=== PATIENT | male | born 1985 | race African-American/Black ===

== ENCOUNTER 2021-10-15 12:37 | Inpatient (IN) | payer OTHER, MEDICAID, SELFPAY ==
[2021-10-15] VITALS (24 sets, daily range): BP systolic 123–149; BP diastolic 75–91; PULSE 70–90; RESP 16–26; TEMP 36.6–38.1; O2SAT 97–100; BMI 23.8
--- NOTE | ~2021-10-15 | CT_ITS ---
EXAMINATION: CT abdomen pelvis w con INDICATION: Abdominal pain and diarrhea TECHNIQUE: Computed tomographic images of the abdomen and pelvis were obtained after the administrati on of 100 cc of Omnipaque 350 intravenous contrast. The dose-length product (DLP) was 309.17 mGy-cm. Automated exposure control and iterative reconstruction technique were employed. COMPARISON: None available FINDINGS: Minimal dependent atelectasis is present in the lung bases. The heart size is normal. The l iver, spleen, pancreas, and adrenal glands are normal. The gallbladder is contracted but normal in ap pearance. Cysts of the right kidney measure up to 8 mm. The left kidney is unremarkable. No pathologi james enlarged abdominal or pelvic lymph nodes are identified. There is no free intraperitoneal gas o r evidence of bowel obstruction. There was liquid stool in the colon to the level of the rectum. The appendix is normal. The left testicle is in the left inguinal canal. IMPRESSION: 1. Liquid stool in the the rectum, consistent with history of diarrhea. Reviewed, dictated and finalized at location F.
--- NOTE | ~2021-10-15 | XR_ITS ---
EXAMINATION: XR chest 1V portable INDICATION: Nausea and vomiting, chills TECHNIQUE: Portable AP chest at 1656 hours COMPARISON: None available FINDINGS: The lungs are free of acute opacities. There is no pleural effusion or pneumothorax. The ca rdiomediastinal silhouette is normal. IMPRESSION: 1. No acute cardiopulmonary abnormality. Reviewed, dictated and finalized at location F. TECHNICIAN
--- NOTE | 2021-10-15 16:48 | ECG_ITS ---
Measurements Intervals [place] Rate: 84 P: 72 [place]: 154 QRS: 76 QRSD: 82 T: 52 QT: 309 QTc: 366 Interpretive Statements SINUS RHYTHM RSR' IN V1 OR V2, PROBABLY NORMAL VARIANT NORMAL ECG Electronically Signed On 10-15-2021 18:24:13 SAP TECHNICAL DEVELOPER by Bruce Locke D.O.
--- NOTE | 2021-10-15 16:50 | ED.GENADULT ---
HPI - General Adult General Chief complaint: Nausea/Vomiting/Diarrhea Stated complaint: Nausea / Vomiting Time Seen by Provider: 10/15/21 15:57 Source: patient Mode of arrival: ambulatory Limitations: no limitations History of Present Illness HPI narrative: Patient presents for evaluation of nausea, vomiting, diarrhea, abdominal pain since 0700 this morning. He was in his normal state of health yesterday and went to bed around 2200 last night feeling well. He woke from sleep this morning with his symptoms. He reports chills and fever. He also has generalized body aches and fatigue. He had an episode of fecal incontinence just prior to the time of my evaluation after he attempted to pass gas rectally. He denies any recent sick contacts. He does not consume ETOH. He has been using heroin daily for the past month but decided to try stop using it two days ago. No other illicit drug use. He does smoke approximately 7 cigarettes/day. He does not provide me with a descriptive quality or numerical rating to the pain but states symptoms are in the bilateral lower quadrants. No personal hx of COVID. He has not received vaccinations for flu or COVID. He does have some mild SOB but denies cough. Related Data Home Medications Medication Instructions Recorded Confirmed No Home Medications 10/15/21 10/15/21 Allergies Allergy/AdvReac Type Severity Reaction Status Date / Time acetaminophen [From Tylenol] AdvReac Abdominal Verified 10/15/21 19:48 Pain Review of Systems Review of Systems: CONSTITUTIONAL: Reports fever and chills EYES: Denies visual changes, redness, or discharge. ENT: Denies rhinorrhea, congestion, sore throat, or otalgia. CARDIOVASCULAR: Denies chest pain, palpitations, or edema. RESPIRATORY: Reports SOB. Denies cough GASTROINTESTINAL: Reports abdominal pain, nausea, vomiting, diarrhea GENITOURINARY: Denies dysuria or hematuria. SKIN: Denies rash or itching. MUSCULOSKELETAL: Reports generalized body aches NEUROLOGIC: Reports generalized weakness. Denies headache, numbness, or dizziness. PSYCHIATRIC: Denies anxiety or depression. [facility] Past Medical History Medical History (Updated 10/15/21 @ 21:54 by Aric Lewis, JL, ) Carpal tunnel syndrome Surgical History Surgical History History of carpal tunnel repair Family History Family History Mother No pertinent past medical history Social History Social History (Updated 10/15/21 @ 16:58 by Aric Lewis, [facility], ) Smoking status: Current every day smoker Substance use: current Substance use type: heroin Additional living arrangements comments: Lives with fiance Gender identity (if verbalized by the patient): Male Sexual Orientation (if Verbalized by the Patient): Straight or Heterosexual Spiritual care concerns: No Exam Narrative: GENERAL: Visibly uncomfortable. Appears acutely ill but in no apparent distress HEAD: Normocephalic, atraumatic. EYES: PERRLA and EOMI. ENT: Nares clear, no rhinorrhea or epistaxis. Mucous membranes moist. Oropharynx without tonsillar hypertrophy exudate or other lesions. Bilateral TMs pearly franco nonbulging NECK: Supple. No adenopathy or masses. No carotid bruits or JVD CHEST: Clear to auscultation. No respiratory distress. No wheezes rales or rhonchi HEART: Regular rate and rhythm. No murmur heard. Normal peripheral pulses. ABDOMEN: Soft, mild diffuse abdominal tenderness without rebound or guarding. Abdomen is nondistended, normal active bowel sounds. EXTREMITIES: Normal range of motion. No edema. SKIN: Warm, dry, no rash. NEURO: No focal deficits. Alert and oriented x3. PSYCH: Normal mood and affect. Course Course Emergency Course: This is a 36-year-old male who presented with complaints of chills, nausea, vomiting, diarrhea. Initial consideration was for acut
[2021-10-15] MEDS: SODIUM CHLORIDE 0.9% IV 1,000 ML 999 ML IV CONT ×2 (17:16→19:36)
[2021-10-15] MEDS: ONDANSETRON INJ 4 MG/2 ML VIAL IV PUSH (17:17)
[2021-10-15 17:22] LABS: Basophils Percent Auto 0.2 % (0.2-1.2); Hematocrit 44.1 % (42.0-52.0); Hemoglobin 15.2 g/dL (14.0-18.0); Immature Granulocyte Absolute 0.03 K/mm3 (0.00-0.031); Immature Granulocyte Percent A 0.3 % (0-0.5); Lymphocytes Absolute Auto 1.06 K/mm3 (0.9-3.2); Lymphocytes Percent Auto 11.6 % (18.3-44.2); Mean Corpuscular HGB Conc 34.5 g/dl (32-36); Mean Corpuscular Hemoglobin 29.4 pg (26-34); Mean Corpuscular Volume 85.3 fl (80-100); Mean Platelet Volume 9.1 fl (7.4-10.4); Monocytes Absolute Auto 0.3 K/mm3 (0.1-0.6); Monocytes Percent Auto 2.8 % (2.6-8.5); Neutrophils Absolute Auto 7.8 K/mm3 (1.3-6.7); Neutrophils Percent Auto 85.1 % (45.5-73.1); Platelet Count Result 316 k/mm3 (150-375); Red Blood Count 5.17 M/mm3 (4.6-6.20); Red Cell Distribution Width 12.6 % (11.5-14.5); White Blood Count 9.2 K/mm3 (4.5-10.0)
[2021-10-15 17:32] LABS: Alanine Aminotransferase 41 U/L (4-50); Alkaline Phosphatase 76 U/L (38-126); Anion Gap 12 mmol/L (8-16); Aspartate Amino Transferase 33 U/L (17-59); Bilirubin,Total 0.5 mg/dL (0.2-1.3); Blood Urea Nitrogen 10 mg/dL (9-20); Calcium 10.3 mg/dL (8.4-10.2); Carbon Dioxide 25 mmol/L (22-30); Chloride 101 mmol/L (98-107); Estimated CRCL calculation 151 ml/min; Estimated Glomerular Filt Rate > 60; Glucose 124 mg/dL (65-110); Lipase 46 U/L (23-300); Potassium 3.7 mmol/L (3.4-5.0); Sodium 138 mmol/L (137-145)
[2021-10-15 17:44] LABS: Troponin I < 0.012 ng/mL (0.000-0.034)
[2021-10-15] MEDS: KETOROLAC 30 MG/ML VIAL (*BKC) IV PUSH (18:49)
[2021-10-15 19:10] LABS: Add Urine Microscopic? YES; Appearance Urine Clear (Clear); Bilirubin Urine Negative (Negative); Color Urine Yellow (Yellow); Glucose Urine UA Negative (Negative); Ketones Urine 1+ mg/dL (Negative); Leukocyte Esterase Ur Trace LEU/UL (Negative); Mucus Urine Heavy /lpf; Nitrate Urine Negative (Negative); Protein Urine 2+ mg/dL (Negative)
[2021-10-15 19:11] LABS: Blood Urine Negative (Negative); Specific Grav Ur 1.049 (1.001-1.035)
[2021-10-15 19:15] LABS: Amphetamine Screen Urine Negative (Negative); Barbiturate Screen Urine Negative (Negative); Benzodiazepines Screen Urine Negative (Negative); Cannabinoid Screen Urine Positive (Negative); Cocaine Screen Urine Negative (Negative); Methadone Screen Urine Negative (Negative); Opiate Screen Urine Positive (Negative); Phencyclidine Screen Urine Negative (Negative)
[2021-10-15] MEDS: PROMETHAZINE HCL 25 MG/ML AMPUL 12.5 MG IV PUSH (19:37)
[2021-10-15] MEDS: SODIUM CHLORIDE 0.9% IV 100 ML 500 ML (19:37)
[2021-10-15] MEDS: cloNIDine HCL 0.1 MG TABLET PO (19:37)
--- NOTE | 2021-10-15 21:42 | PM.IMHP ---
H&P: HPI History of Present Illness Date/Time: 10/15/21 21:42 Chief Complaint: Nausea /vomiting/ diarrhea Narrative: This is a 36-year-old male with past medical history significant for heroin abuse, tobacco dependence. Patient presented to emergency room due to nausea, vomiting, abdominal pain and diarrhea for the last 2 days or so after the patient had been consuming heroin for the past 2 weeks on a daily basis. Patient also has muscular pain. Most of the history has been obtained upon reviewing medical records at the time of my visit patient was obtunded he had received Phenergan. In the emergency room patient had a fever of 100.5. Patient denied the use of IV drugs and denied use of other concomitant substance. Preliminary workup was significant for CT of abdomen and pelvis and chest x-ray with no acute abnormalities, a UA was significant for WBCs present, basic metabolic profile was irrelevant. Patient has been placed in observation for further evaluation management and treatment. Review of Systems Review of Systems: Nausea, vomiting, diarrhea ,abdominal pain. Constitutional: Constitutional: Reports fatigue, Reports fever(s), Reports lethargy, Denies night sweats and Reports poor appetite Eyes: Eyes: Denies change in vision ENT: Denies dysphagia, Denies nasal congestion, Denies nasal discharge, Denies nasal obstruction and Denies odynophagia Cardiovascular: Cardiovascular: Denies lightheadedness, Denies radiating jaw, neck or arm pain, Denies palpitations, Denies dyspnea on exertion and Denies orthopnea Respiratory: Respiratory: Denies change in phlegm color, Denies cough, Denies excessive phlegm production and Denies dyspnea Gastrointestinal: Gastrointestinal: Reports abdominal pain, Denies melena, Denies hematochezia, Denies change in stool character, Denies coffee ground emesis, Denies dyspepsia, Denies heartburn, Reports diarrhea, Reports nausea and Reports vomiting Genitourinary: Genitourinary: Denies dysuria and Denies flank pain Musculoskeletal: Musculoskeletal: Denies back pain and Reports myalgias Integumentary/Breasts: Skin/Breast: Denies rash Neurologic: Denies focal weakness and Denies Sensory deficit (Neuro) Psychiatric: Psychiatric: Reports other (Substance abuse) Endocrine: Endocrine: Denies cold intolerance, Denies heat intolerance, Denies polyphagia, Denies polydipsia, Denies polyuria and Denies palpitations Hematologic/Lymphatic: Hematologic/Lymphatic: Reports no additional hematologic/lymphatic complaints and Reports as per HPI Allergic/Immunologic: Allergic/Immunologic: Reports no additional allergic/immunologic complaints and Reports as per HPI PMFSH Past Medical History Medical History (Updated 10/16/21 @ 03:29 by Olimpia Loja MD) Carpal tunnel syndrome Surgical History Surgical History History of carpal tunnel repair Family History Family History Mother No pertinent past medical history Social History Social History (Updated 10/15/21 @ 16:58 by JL Lawler, ) Smoking status: Current every day smoker Alcohol intake: never Substance use: former Substance use type: heroin Last use: 2 days ago Additional living arrangements comments: Lives with fiance Gender identity (if verbalized by the patient): Male Sexual Orientation (if Verbalized by the Patient): Straight or Heterosexual Spiritual care concerns: No Meds Home Medications and Allergies Home Medications Medication Instructions Recorded Confirmed Type No Home Medications 10/15/21 10/15/21 History Allergies Allergy/AdvReac Type Severity Reaction Status Date / Time acetaminophen [From Tylenol] AdvReac Abdominal Verified 10/16/21 00:01 Pain Vital Signs Vital Signs - 24 hr 10/15/21 13:39 10/15/21 15:44 10/15/21 18:50 Temperature 98 F Pulse R
[2021-10-15 21:48] LABS: SARS-CoV-2 RNA PCR Negative
[2021-10-15] MEDS: DICYCLOMINE HCL INJ 20 MG/2 ML VIAL IM (22:59)
[2021-10-15] MEDS: SODIUM CHLORIDE 0.9% IV 1,000 ML 150 ML IV CONT (23:00)
--- NOTE | 2021-10-15 23:45 | ADMGEN ---
This patient, Michele Mendez, was admitted to Medical Room 241-. Patient/family oriented to hospital policies and general routines including ID bracelet, bed and alarms, visiting hours, pain management, procedures, bathroom and other care routines, personal items, smoking policy, room service/diet, and visiting hours. Information on how to activate the Rapid Response Team has been discussed. Patient/Family are encouraged to report perceived risks to care and to ask questions if they do not understand what they are told or what they should do.
[2021-10-16] VITALS (10 sets, daily range): BP systolic 105–125; BP diastolic 61–84; PULSE 67–97; RESP 14–18; TEMP 36.9–37.1; O2SAT 99–100
[2021-10-16] MEDS: SODIUM CHLORIDE 0.9% IV 1,000 ML 125 ML IV CONT ×3 (01:15→20:31)
[2021-10-16 01:31] LABS: Troponin I < 0.012 ng/mL (0.000-0.034)
[2021-10-16] MEDS: CIPROFLOXACIN 400 MG/D5W 200ML 200 ML 200 MG IVPB ×3 (03:49→20:33)
[2021-10-16 05:19] LABS: Basophils Percent Auto 0.4 % (0.2-1.2); Hematocrit 38.3 % (42.0-52.0); Hemoglobin 12.9 g/dL (14.0-18.0); Immature Granulocyte Absolute 0.04 K/mm3 (0.00-0.031); Immature Granulocyte Percent A 0.4 % (0-0.5); Lymphocytes Absolute Auto 1.73 K/mm3 (0.9-3.2); Lymphocytes Percent Auto 16.7 % (18.3-44.2); Mean Corpuscular HGB Conc 33.7 g/dl (32-36); Mean Corpuscular Hemoglobin 29.9 pg (26-34); Mean Corpuscular Volume 88.7 fl (80-100); Mean Platelet Volume 9.4 fl (7.4-10.4); Monocytes Percent Auto 9.4 % (2.6-8.5); Neutrophils Absolute Auto 7.6 K/mm3 (1.3-6.7); Neutrophils Percent Auto 73.1 % (45.5-73.1); Platelet Count Result 270 k/mm3 (150-375); Red Blood Count 4.32 M/mm3 (4.6-6.20); Red Cell Distribution Width 12.9 % (11.5-14.5); White Blood Count 10.4 K/mm3 (4.5-10.0)
[2021-10-16 05:45] LABS: Alanine Aminotransferase 27 U/L (4-50); Albumin Level 3.5 g/dL (3.5-5.1); Alkaline Phosphatase 47 U/L (38-126); Anion Gap 10 mmol/L (8-16); Aspartate Amino Transferase 26 U/L (17-59); Bilirubin,Total 0.5 mg/dL (0.2-1.3); Blood Urea Nitrogen 13 mg/dL (9-20); Calcium 8.5 mg/dL (8.4-10.2); Carbon Dioxide 18 mmol/L (22-30); Chloride 107 mmol/L (98-107); Estimated CRCL calculation 151 ml/min; Estimated Glomerular Filt Rate > 60; Glucose 125 mg/dL (65-110); Potassium 3.6 mmol/L (3.4-5.0); Sodium 135 mmol/L (137-145)
[2021-10-16] MEDS: FAMOTIDINE 20 MG/2 ML VIAL IV PUSH ×2 (08:17→20:34)
--- NOTE | 2021-10-16 08:44 | PM.DS ---
DS: Admitting Diagnosis Discharge Date 10/16/2021 Admitting Diagnosis n/v/d DS: Discharge Diagnosis Discharge Diagnosis (1) Intractable nausea and vomiting: Code(s): R11.2 - Nausea with vomiting, unspecified Status: Acute Assessment and Plan: Place in observation Advance diet to a regular bland CT abdomen and pelvis no abnormalities Will discharge with Zofran or Compazine Opioid withdrawal protocol implemented (2) Abdominal pain: Code(s): R10.9 - Unspecified abdominal pain Status: Acute Assessment and Plan: Likely secondary to heroin withdrawal Supportive care (3) Substance abuse: Code(s): F19.10 - Other psychoactive substance abuse, uncomplicated Status: Acute Assessment and Plan: Follow-up in outpatient setting (4) Altered mental status: Code(s): R41.82 - Altered mental status, unspecified Status: Acute Assessment and Plan: Likely secondary to febrile illness Patient had a fever of 100.5 in emergency room (5) Urinary tract infection: Code(s): N39.0 - Urinary tract infection, site not specified Status: Acute Assessment and Plan: Patient started on ciprofloxacin will continue at discharge (6) Fever: Code(s): R50.9 - Fever, unspecified Status: Acute Assessment and Plan: Chest x-ray clear COVID-19 screen test negative Possibly secondary to UTI DS: Summary Hospital Course Hospital Course: This is a progress note CIWA greater than 15 patient currently experience withdrawal symptoms, patient stated he his abdominal pain and cramping, diarrhea, nausea ,shakes, muscle aches. This is a 36-year-old male with past medical history significant for heroin abuse, tobacco dependence. Patient presented to emergency room due to nausea, vomiting, abdominal pain and diarrhea for the last 2 days or so after the patient had been consuming heroin for the past 2 weeks on a daily basis. Patient denied the use of IV drugs and denied use of other concomitant substance. Preliminary workup was significant for CT of abdomen and pelvis and chest x-ray with no acute abnormalities, a UA was significant for WBCs present, basic metabolic profile was irrelevant. Patient was placed in observation for further evaluation management and treatment.per h&p notes. Patient will be discharged today with medication to treat his withdrawal symptoms. Obvious distress noted. Patient denies cp, sob, palpitation, diarrhea, constipation, lightheadness, headache, dizziness or chills and fevers. Time Spent with Patient Time attestation: Total time spent providing and/or coordinating discharge services: Exam Narrative: GENERAL: This is a well-nourished, well-developed patient, in no apparent distress. HEAD: normocephalic, atraumatic. EYES: PERRL. Sclera clear/white. Vision is grossly intact. EARS: External ears normal, auditory canals clear and without drainage, TMs normal without perforation. Hearing grossly intact. NOSE: External nose normal with no obvious nasal discharge, nares without redness, no rhinorrhea. THROAT: Mucous membranes moist, posterior pharynx clear. NECK: Neck supple, non-tender without lymphadenopathy, masses or thyromegaly. CARDIOVASCULAR: Regular rate and rhythm without murmurs, gallops, or rubs. RESPIRATORY: Clear to auscultation. Breath sounds equal bilaterally. No wheezes, rales, or rhonchi. GASTROINTESTINAL: Abdomen soft, non-tender, nondistended. Bowel sounds are active. No hepato-splenomegaly, or palpable masses. No guarding. SKIN: warm, intact with no suspicious lesions or rash, good texture and turgor. NEURO: awake, alert, and oriented to person, place and time. There were no obvious focal neurologic abnormalities. Steady gait EXTREMITIES: Normal range of motion. No edema. No calf tenderness. Negative Homans sign bilaterally. BACK: Nontender without deformity or crepitance. No flank tenderness. DS: Data Data Completed an
[2021-10-16] MEDS: ONDANSETRON INJ 4 MG/2 ML VIAL IV PUSH (09:35)
[2021-10-16] MEDS: LORazepam INJ (*CRX) 2 MG/ML VIAL 0.5 MG IV PUSH (09:35)
[2021-10-16] MEDS: chlordiazePOXIDE (*CRX) 25 MG CAPSULE PO ×3 (12:24→23:58)
[2021-10-16] MEDS: LORazepam INJ (*CRX) 2 MG/ML VIAL IV PUSH (13:36)
[2021-10-16] MEDS: PANTOPRAZOLE SODIUM IV 40 MG VIAL IV PUSH (15:36)
[2021-10-16] MEDS: LOPERAMIDE HCL 2 MG CAPSULE PO (17:49)
[2021-10-16] MEDS: IBUPROFEN 400 MG TABLET PO ×2 (17:49→23:58)
[2021-10-16] MEDS: QUEtiapine FUMARATE 25 MG TABLET 50 MG PO (20:35)
[2021-10-16] MEDS: LORazepam INJ (*CRX) 2 MG/ML VIAL 1 MG IV PUSH (20:36)
[2021-10-16] MEDS: CYCLOBENZAPRINE HCL 10 MG TABLET PO (23:58)
[2021-10-17] VITALS (12 sets, daily range): BP systolic 120–138; BP diastolic 71–81; PULSE 59–105; RESP 16–20; TEMP 37–37.8; O2SAT 99–100; BMI 23.8
[2021-10-17] MEDS: LORazepam INJ (*CRX) 2 MG/ML VIAL 1 MG IV PUSH (03:21)
[2021-10-17] MEDS: CIPROFLOXACIN 400 MG/D5W 200ML 200 ML 200 MG IVPB ×3 (03:46→20:10)
[2021-10-17] MEDS: chlordiazePOXIDE (*CRX) 25 MG CAPSULE PO ×3 (05:19→18:00)
[2021-10-17 06:04] LABS: Hematocrit 36.4 % (42.0-52.0); Hemoglobin 12.6 g/dL (14.0-18.0); Mean Corpuscular HGB Conc 34.6 g/dl (32-36); Mean Corpuscular Hemoglobin 29.2 pg (26-34); Mean Corpuscular Volume 84.3 fl (80-100); Mean Platelet Volume 9.1 fl (7.4-10.4); Platelet Count Result 290 k/mm3 (150-375); Red Blood Count 4.32 M/mm3 (4.6-6.20); Red Cell Distribution Width 12.3 % (11.5-14.5); White Blood Count 8.2 K/mm3 (4.5-10.0)
[2021-10-17 06:23] LABS: Anion Gap 4 mmol/L (8-16); Blood Urea Nitrogen 6 mg/dL (9-20); Calcium 8.9 mg/dL (8.4-10.2); Carbon Dioxide 25 mmol/L (22-30); Chloride 106 mmol/L (98-107); Estimated CRCL calculation 151 ml/min; Estimated Glomerular Filt Rate > 60; Glucose 107 mg/dL (65-110); Potassium 3.2 mmol/L (3.4-5.0); Sodium 135 mmol/L (137-145)
[2021-10-17] MEDS: FAMOTIDINE 20 MG/2 ML VIAL IV PUSH ×2 (08:39→20:10)
[2021-10-17] MEDS: SODIUM CHLORIDE 0.9% IV 1,000 ML 125 ML IV CONT (08:39)
[2021-10-17] MEDS: CYCLOBENZAPRINE HCL 10 MG TABLET PO (09:36)
[2021-10-17] MEDS: LOPERAMIDE HCL 2 MG CAPSULE PO (09:36)
--- NOTE | 2021-10-17 15:09 | PM.IMPN ---
Progress Note: A&P Assessment and Plan (1) Intractable nausea and vomiting: Code(s): R11.2 - Nausea with vomiting, unspecified Status: Acute Assessment and Plan: Place in observation On clear, ADAT CT abdomen and pelvis no acute abnormalities Continue antiemetics Opioid withdrawal protocol implemented (2) Abdominal pain: Code(s): R10.9 - Unspecified abdominal pain Status: Acute Assessment and Plan: Likely secondary to heroin withdrawal Supportive care (3) Substance abuse: Code(s): F19.10 - Other psychoactive substance abuse, uncomplicated Status: Acute Assessment and Plan: Follow-up in outpatient setting (4) Altered mental status: Code(s): R41.82 - Altered mental status, unspecified Status: Acute Assessment and Plan: Likely secondary UTI Patient had a fever of 100.5 in emergency room (5) Urinary tract infection: Code(s): N39.0 - Urinary tract infection, site not specified Status: Acute Assessment and Plan: Continue ciprofloxacin UC negative (6) Fever: Code(s): R50.9 - Fever, unspecified Status: Acute Assessment and Plan: Chest x-ray clear COVID-19 screen test negative Possibly secondary to UTI Additional Plan Code status: FULL DVT Ppx: pt up ad ruthie Subjective Date/time seen: 10/17/21 15:09 Interval history: Pt seen and evaluated; labs, vs, diagnostic results reviewed; afebrile today; pt endorses N/V/D; reports low back pain Review of Systems Review of Systems: All systems reviewed & are unremarkable except as noted in HPI and below Exam Const: General: ill appearing Orientation/consciousness: patient oriented x3 HENMT: Head: normocephalic and atraumatic Ears: hearing grossly normal bilaterally and external ears normal Face and sinus: face symmetric Mouth: Yes Normal oral and palatal mucosa present Eyes: EOM: EOMs intact bilaterally Neck: Neck: full ROM, trachea midline and no JVD Resp: Effort & Inspection: normal respiratory effort Auscultation: clear to auscultation bilaterally Cardio: Jugular venous distension: no JVD Rate: regular rate Rhythm: regular rhythm Heart sounds: S1 normal heart sound present and S2 normal heart sound present GI: Inspection: normal to inspection GI Palp: Yes Soft to palpation Percussion: Yes normal to percussion Auscultation: normal bowel sounds : General: Yes no CVA tenderness Skin: General skin exam: normal color Rashes: no rashes Neuro: General: patient oriented x3 and no focal motor deficits Cranial nerves: Yes Equal, round and reactive pupils present Speech: normal speech Extrem: General: no clubbing, cyanosis or edema Psych: Appearance: grossly normal Affect: Sad affect present Judgement: Good judgement present (Psych) Objective Data Vital Signs Vital Signs: Vital Signs - 24 hr 10/16/21 16:00 10/16/21 19:23 10/16/21 20:00 Temperature 37.1 C 37.1 C Pulse Rate 80 84 97 Respiratory Rate 16 18 Blood Pressure 120/84 118/65 Pulse Oximetry 100 99 10/16/21 23:48 10/17/21 00:00 10/17/21 03:08 Temperature 37.1 C 37.7 C H Pulse Rate 67 78 64 Respiratory Rate 14 16 Blood Pressure 116/78 120/72 Pulse Oximetry 100 99 10/17/21 04:00 10/17/21 08:00 10/17/21 10:07 Temperature 37.3 C Pulse Rate 72 105 H 72 Respiratory Rate 20 Blood Pressure 122/71 Pulse Oximetry 100 10/17/21 12:00 Temperature Pulse Rate 74 Respiratory Rate Blood Pressure Pulse Oximetry Intake/Output Intake/Output: Intake & Output 10/14/21 10/15/21 10/16/21 10/17/21 23:59 23:59 23:59 23:59 Intake Total 2200 3600 1970 Balance 2200 3600 1970 Meds/Results Medications: Active Medications Generic Name Dose Route Start Last Admin Trade Name Freq PRN Reason Stop Dose Admin Chlordiazepoxide HCl 25 mg 10/16/21 11:20 10/17/21 11:51 Chlordiazepoxide (*Crx) 25 Mg Capsule PO 25 mg Q6HR COUNTS INCLUDE 234 BEDS AT THE [facility] Administr
[2021-10-17] MEDS: IBUPROFEN 600 MG TABLET PO (16:19)
[2021-10-17] MEDS: POTASSIUM CHLORIDE 20 MEQ PACKET (FOR LIQUID) 40 MEQ PO (16:19)
[2021-10-17] MEDS: SODIUM CHLORIDE 0.9% IV 1,000 ML 75 ML IV CONT (20:10)
[2021-10-17] MEDS: QUEtiapine FUMARATE 25 MG TABLET 50 MG PO (20:11)
[2021-10-18] VITALS (10 sets, daily range): BP systolic 112–145; BP diastolic 68–93; PULSE 54–110; RESP 14–20; TEMP 36.4–37.5; O2SAT 100
[2021-10-18] MEDS: chlordiazePOXIDE (*CRX) 25 MG CAPSULE PO ×4 (00:03→20:12)
[2021-10-18] MEDS: CYCLOBENZAPRINE HCL 10 MG TABLET PO (00:08)
[2021-10-18] MEDS: CIPROFLOXACIN 400 MG/D5W 200ML 200 ML 200 MG IVPB (03:46)
[2021-10-18] MEDS: IBUPROFEN 600 MG TABLET PO ×2 (03:46→17:24)
[2021-10-18] MEDS: hydrOXYzine HCL 25 MG TABLET 50 MG PO (03:47)
[2021-10-18 06:04] LABS: Anion Gap 9 mmol/L (8-16); Blood Urea Nitrogen 3 mg/dL (9-20); Calcium 8.9 mg/dL (8.4-10.2); Carbon Dioxide 23 mmol/L (22-30); Chloride 103 mmol/L (98-107); Estimated CRCL calculation 131 ml/min; Estimated Glomerular Filt Rate > 60; Glucose 122 mg/dL (65-110); Potassium 3.2 mmol/L (3.4-5.0); Sodium 135 mmol/L (137-145)
[2021-10-18] MEDS: POTASSIUM CHLORIDE 20 MEQ PACKET (FOR LIQUID) PO (08:33)
[2021-10-18] MEDS: FAMOTIDINE 20 MG/2 ML VIAL IV PUSH ×2 (08:33→20:10)
--- NOTE | 2021-10-18 10:13 | P.PNIM_ITS ---
Progress Note: A&P Assessment and Plan (1) Nausea vomiting and diarrhea: Code(s): R11.2 - Nausea with vomiting, unspecified; R19.7 - Diarrhea, unspecified Status: Acute Assessment and Plan: Improving. [place] to be secondary to opioid withdrawal * CT abdomen/pelvis showed liquid stool but no acute findings to explain symptoms * Advanced to regular diet * Will discontinue IV fluids as patient is tolerating oral intake and vomiting has resolved * Antiemetics available as needed * Diarrhea improving. One episode of loose stool today (2) Abdominal pain: Code(s): R10.9 - Unspecified abdominal pain Status: Acute Assessment and Plan: Improved. As above, felt to be secondary to opioid withdrawal * Supportive care * Plan as above (3) Fever: Code(s): R50.9 - Fever, unspecified Status: Acute Assessment and Plan: Low-grade fever with T-max 100.5?. * Febrile last night at 100.0 * CXR without concerns for infection. COVID screening was negative * Initially felt to be secondary to UTI and he was started on ciprofloxacin, however urine culture shows <10k single Gram-positive organism. This is not consistent with infection. Ciprofloxacin discontinued * Will obtain blood cultures * Hold on stool cultures at this time as stool is becoming more formed and diarrhea more likely explained by opioid withdrawal. * Check HIV, hepatitis, RPR, gonorrhea, chlamydia testing * Acetaminophen as needed for fever * Continue to monitor closely (4) Substance abuse: Code(s): F19.10 - Other psychoactive substance abuse, uncomplicated Status: Acute Assessment and Plan: Patient has been smoking heroin daily for 1 month * Care coordination consult to provide resources for cessation * He denies IV drug use * Supportive care * He was started on scheduled librium 25 mg PO q6h. Will begin to taper this. * He will need close outpatient follow-up with PCP (5) Low back pain: Code(s): M54.50 - Low back pain, unspecified Status: Acute Assessment and Plan: Chronic * Supportive care * Ice and heat as needed * Lidocaine patch (6) Hypokalemia: Code(s): E87.6 - Hypokalemia Status: Acute Assessment and Plan: Secondary to diarrhea. * Potassium 3.2 today * Administer PO KCl 20 meq * Monitor BMP Subjective Date/time seen: 01/11/22 10:13 Interval history: Date of service: 10/18/2021 Michele Nance is a 36-year-old male with a history of heroin abuse who is seen in follow-up for fevers, nausea, and vomiting. He feels generally unwell and notes very minimal improvement since his admission. He still has nausea, though he has had not had any more episodes of emesis. He has only had liquids and has not attempted to try solid food yet, though there is solids on his breakfast tray and he says he is going to try to have some. This morning he had an episode of diarrhea. He states it was loose in consistency but not watery. He endorses chills and generalized weakness. He complains of diffuse low back pain that has been persistent for 3 days. He later states that he has had back pain that has been constant since 2014 when he had back surgery and feels his pain is consistent with this. He would like to take some pain medication for this. He denies radiation to the hips, buttocks, or legs. He denies dysuria or hematuria. He reports he was smoking heroin daily. He denies ever using IV drugs. He denies any open wounds. He denies tremors, hallucinations, agitation
--- NOTE | 2021-10-18 10:13 | PM.IMPN ---
Progress Note: A&P Assessment and Plan (1) Nausea vomiting and diarrhea: Code(s): R11.2 - Nausea with vomiting, unspecified; R19.7 - Diarrhea, unspecified Status: Acute Assessment and Plan: Improving. [place] to be secondary to opioid withdrawal CT abdomen/pelvis showed liquid stool but no acute findings to explain symptoms Advanced to regular diet Will discontinue IV fluids as patient is tolerating oral intake and vomiting has resolved Antiemetics available as needed Diarrhea improving. One episode of loose stool today (2) Abdominal pain: Code(s): R10.9 - Unspecified abdominal pain Status: Acute Assessment and Plan: Improved. As above, felt to be secondary to opioid withdrawal Supportive care Plan as above (3) Fever: Code(s): R50.9 - Fever, unspecified Status: Acute Assessment and Plan: Low-grade fever with T-max 100.5?. Febrile last night at 100.0 CXR without concerns for infection. COVID screening was negative Initially felt to be secondary to UTI and he was started on ciprofloxacin, however urine culture shows <10k single Gram-positive organism. This is not consistent with infection. Ciprofloxacin discontinued Will obtain blood cultures Hold on stool cultures at this time as stool is becoming more formed and diarrhea more likely explained by opioid withdrawal. Check HIV, hepatitis, RPR, gonorrhea, chlamydia testing Acetaminophen as needed for fever Continue to monitor closely (4) Substance abuse: Code(s): F19.10 - Other psychoactive substance abuse, uncomplicated Status: Acute Assessment and Plan: Patient has been smoking heroin daily for 1 month Care coordination consult to provide resources for cessation He denies IV drug use Supportive care He was started on scheduled librium 25 mg PO q6h. Will begin to taper this. He will need close outpatient follow-up with PCP (5) Low back pain: Code(s): M54.50 - Low back pain, unspecified Status: Acute Assessment and Plan: Chronic Supportive care Ice and heat as needed Lidocaine patch (6) Hypokalemia: Code(s): E87.6 - Hypokalemia Status: Acute Assessment and Plan: Secondary to diarrhea. Potassium 3.2 today Administer PO KCl 20 meq Monitor BMP Subjective Date/time seen: 10/18/21 10:13 Interval history: Date of service: 10/18/2021 Michele Nance is a 36-year-old male with a history of heroin abuse who is seen in follow-up for fevers, nausea, and vomiting. He feels generally unwell and notes very minimal improvement since his admission. He still has nausea, though he has had not had any more episodes of emesis. He has only had liquids and has not attempted to try solid food yet, though there is solids on his breakfast tray and he says he is going to try to have some. This morning he had an episode of diarrhea. He states it was loose in consistency but not watery. He endorses chills and generalized weakness. He complains of diffuse low back pain that has been persistent for 3 days. He later states that he has had back pain that has been constant since 2014 when he had back surgery and feels his pain is consistent with this. He would like to take some pain medication for this. He denies radiation to the hips, buttocks, or legs. He denies dysuria or hematuria. He reports he was smoking heroin daily. He denies ever using IV drugs. He denies any open wounds. He denies tremors, hallucinations, agitation, restlessness. Review of Systems Review of Systems: All systems reviewed & are unremarkable except as noted in HPI and below Exam Narrative: Mr. Mendez is a thin, well-appearing 36-year-old male who is sitting up in a chair. He appears comfortable and is in NARD. Neuro: awake, alert and oriented x4, speech clear, no focal neuro deficits noted HEENMT: normocephalic, atraumatic, EOMI, sclerae anic
[2021-10-18 12:20] LABS: HIV 1/2 Ab P24 Ag Result Negative (Negative)
[2021-10-18 12:53] LABS: Hepatitis B Surface Antigen Negative (Negative)
[2021-10-18 12:58] LABS: HAV RESULT Negative (Negative); Hepatitis B Core IgM Result Negative (Negative)
[2021-10-18 13:10] LABS: Hepatitis C Virus Antibody Negative (Negative)
[2021-10-19] VITALS (7 sets, daily range): BP systolic 116–129; BP diastolic 61–78; PULSE 57–71; RESP 14–16; TEMP 36.6–37.2; O2SAT 97–100
[2021-10-19] MEDS: chlordiazePOXIDE (*CRX) 25 MG CAPSULE PO ×3 (04:03→20:10)
[2021-10-19 06:11] LABS: Hematocrit 37.3 % (42.0-52.0); Hemoglobin 13.1 g/dL (14.0-18.0); Mean Corpuscular HGB Conc 35.1 g/dl (32-36); Mean Corpuscular Hemoglobin 29.8 pg (26-34); Mean Platelet Volume 9.3 fl (7.4-10.4); Platelet Count Result 292 k/mm3 (150-375); Red Blood Count 4.39 M/mm3 (4.6-6.20); Red Cell Distribution Width 12.1 % (11.5-14.5); White Blood Count 8.5 K/mm3 (4.5-10.0)
[2021-10-19 06:21] LABS: Anion Gap 8 mmol/L (8-16); Blood Urea Nitrogen 4 mg/dL (9-20); Carbon Dioxide 26 mmol/L (22-30); Chloride 103 mmol/L (98-107); Estimated CRCL calculation 151 ml/min; Estimated Glomerular Filt Rate > 60; Glucose 94 mg/dL (65-110); Magnesium 1.7 mg/dL (1.6-2.3); Potassium 3.3 mmol/L (3.4-5.0); Sodium 137 mmol/L (137-145)
[2021-10-19] MEDS: FAMOTIDINE 20 MG/2 ML VIAL IV PUSH (08:31)
[2021-10-19] MEDS: IBUPROFEN 600 MG TABLET PO ×2 (08:38→20:12)
[2021-10-19] MEDS: POTASSIUM CHLORIDE 20 MEQ TABLET 40 MEQ PO (10:11)
--- NOTE | 2021-10-19 10:27 | PM.IMPN ---
Progress Note: A&P Assessment and Plan (1) Intractable nausea and vomiting: Code(s): R11.2 - Nausea with vomiting, unspecified Status: Deleted Assessment and Plan: Place in observation Regular diet CT abdomen and pelvis no acute abnormalities Continue antiemetics Opioid withdrawal protocol implemented Place in observation On clear, ADAT CT abdomen and pelvis no acute abnormalities Continue antiemetics Opioid withdrawal protocol implemented (2) Fever: Code(s): R50.9 - Fever, unspecified Status: Acute Assessment and Plan: Chest x-ray clear COVID-19 screen test negative Possibly secondary to UTI Chest x-ray clear COVID-19 screen test negative Possibly secondary to UTI HIV, hepatitis neg RPR pending gonorrhea, chlamydia pending (3) Abdominal pain: Code(s): R10.9 - Unspecified abdominal pain Status: Acute Assessment and Plan: Likely secondary to heroin withdrawal Supportive care (4) Substance abuse: Code(s): F19.10 - Other psychoactive substance abuse, uncomplicated Status: Acute Assessment and Plan: Follow-up in outpatient setting (5) Altered mental status: Code(s): R41.82 - Altered mental status, unspecified Status: Acute Assessment and Plan: Multifactorial, ?infection, drug use Patient had a fever of 100.5 in emergency room (6) Urinary tract infection: Code(s): N39.0 - Urinary tract infection, site not specified Status: Acute Assessment and Plan: Continue ciprofloxacin UC negative Additional Plan Code status: FULL DVT Ppx: pt up ad ruthie Disposition: s/s of withdrawal can last 7 days or more; pt advised 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 [facility] CC following Subjective Date/time seen: 10/19/21 10:27 Interval history: Pt seen and evaluated; afebrile this morning; denies any V/D; nausea has improved; does still endorse chills Review of Systems Review of Systems: All systems reviewed & are unremarkable except as noted in HPI and below Exam Const: General: no acute distress Orientation/consciousness: patient oriented x3 HENMT: Head: normocephalic and atraumatic Ears: hearing grossly normal bilaterally and external ears normal Face and sinus: face symmetric Mouth: Yes Normal oral and palatal mucosa present Eyes: EOM: EOMs intact bilaterally Neck: Neck: full ROM and trachea midline Resp: Effort & Inspection: normal respiratory effort Auscultation: clear to auscultation bilaterally Cardio: Jugular venous distension: no JVD Rate: regular rate Rhythm: regular rhythm Heart sounds: S1 normal heart sound present and S2 normal heart sound present GI: Inspection: normal to inspection Auscultation: normal bowel sounds : General: Yes no CVA tenderness Back/Spine/Pelvis: Back: no CVA tenderness Skin: General skin exam: normal color Rashes: no rashes Neuro: General: patient oriented x3 and no focal motor deficits Speech: normal speech Extrem: General: no clubbing, cyanosis or edema Psych: Appearance: grossly normal Affect: Sad affect present Judgement: Good judgement present (Psych) Objective Data Vital Signs Vital Signs: Vital Signs - 24 hr 10/18/21 12:00 10/18/21 14:17 10/18/21 18:27 Temperature 37.3 C 37.5 C Pulse Rate 92 84 67 Respiratory Rate 20 18 Blood Pressure 145/93 H 117/68 Pulse Oximetry 100 100 10/18/21 20:19 10/19/21 02:00 10/19/21 06:00 Temperature 36.4 C 36.6 C 36.8 C Pulse Rate 62 68 57 L Respiratory Rate 14 14 16 Blood Pressure 121/75 129/78 116/61 Pulse Oximetry 100 97 100 Intake/Output Intake/Output: Intake & Output 10/16/21 10/17/21 10/18/21 10/19/21 23:59 23:59 23:59 23:59 Intake Total 3600 3220 2440 790 Output Total 1275 350 Balance 3600 1945 2090 790 Meds/Results Medications: Active Medications Generic Name Dose Route Start Last Admin Trade Name Freq PRN Reason St
--- NOTE | 2021-10-19 10:39 | PCNFU ---
Nutrition Follow-Up Complete: Inadequate Oral Intake as related to Intractable N/V and evidenced by poor po intake reported. goal: Meet estimated nutritional needs Patient is progressing towards goal. We will continue current goal. Pt current nutrition is Regular diet. Last recorded weight is 75.5 kg-stable Bowel Motility:+BM reported 10/18-less diarrhea reported. Labs Reviewed:Cr 0.6, BUN 4, K 3.3,Hct 37.3,Hgb 13.1 Meds Noted:Zofran, Librium, Flexeril, Pepcid Skin: WNL Additional Notes: Diet order has been advanced to a regular diet. Oral Intake 50-85% of meals-tolerating. Agree with diet orders. Monitoring: Will monitor every 7 days.
[2021-10-19 14:25] LABS: Rapid Plasma Reagin Non-Reactive (NonReactive)
[2021-10-19] MEDS: FAMOTIDINE 20 MG TABLET PO (20:10)
[2021-10-20] MEDS: chlordiazePOXIDE (*CRX) 25 MG CAPSULE PO (04:06)
[2021-10-20 05:58] VITALS: BP 119/64; PULSE 61; RESP 16; TEMP 37.2; O2SAT 100
[2021-10-20] MEDS: FAMOTIDINE 20 MG TABLET PO (09:02)
[2021-10-20 10:00] VITALS: BP 118/66; PULSE 72; RESP 16; TEMP 36.7; O2SAT 100
[2021-10-20 10:26] LABS: Basophils Absolute Auto 0.1 K/mm3 (0.0-0.1); Basophils Percent Auto 0.8 % (0.2-1.2); Eosinophils Absolute Auto 0.6 K/mm3 (0-0.3); Eosinophils Percent Auto 8.1 % (0-4.4); Hematocrit 39.9 % (42.0-52.0); Hemoglobin 14.1 g/dL (14.0-18.0); Immature Granulocyte Absolute 0.01 K/mm3 (0.00-0.031); Immature Granulocyte Percent A 0.1 % (0-0.5); Lymphocytes Absolute Auto 2.19 K/mm3 (0.9-3.2); Mean Corpuscular HGB Conc 35.3 g/dl (32-36); Mean Corpuscular Hemoglobin 29.4 pg (26-34); Mean Corpuscular Volume 83.3 fl (80-100); Mean Platelet Volume 8.9 fl (7.4-10.4); Monocytes Percent Auto 12.3 % (2.6-8.5); Neutrophils Percent Auto 50.7 % (45.5-73.1); Platelet Count Result 332 k/mm3 (150-375); Red Blood Count 4.79 M/mm3 (4.6-6.20); Red Cell Distribution Width 12.2 % (11.5-14.5); White Blood Count 7.8 K/mm3 (4.5-10.0)
[2021-10-20 10:29] LABS: Magnesium 1.9 mg/dL (1.6-2.3)
[2021-10-20 10:37] LABS: Alanine Aminotransferase 19 U/L (4-50); Albumin Level 4.1 g/dL (3.5-5.1); Alkaline Phosphatase 51 U/L (38-126); Anion Gap 8 mmol/L (8-16); Aspartate Amino Transferase 21 U/L (17-59); Bilirubin,Total 0.4 mg/dL (0.2-1.3); Blood Urea Nitrogen 4 mg/dL (9-20); Calcium 9.4 mg/dL (8.4-10.2); Carbon Dioxide 25 mmol/L (22-30); Chloride 105 mmol/L (98-107); Estimated CRCL calculation 131 ml/min; Estimated Glomerular Filt Rate > 60; Glucose 87 mg/dL (65-110); Potassium 3.5 mmol/L (3.4-5.0); Sodium 138 mmol/L (137-145)
[2021-10-20] MEDS: IBUPROFEN 600 MG TABLET PO (11:03)
--- NOTE | 2021-10-20 12:08 | PM.DS ---
DS: Admitting Diagnosis Discharge Date 10/20/2021 Admitting Diagnosis Nausea vomiting, fever, abdominal pain, altered mental status, UTI DS: Discharge Diagnosis Discharge Diagnosis (1) Intractable nausea and vomiting: Code(s): R11.2 - Nausea with vomiting, unspecified Status: Deleted Assessment and Plan: Place in observation Regular diet CT abdomen and pelvis no acute abnormalities Continue antiemetics Opioid withdrawal protocol implemented Place in observation On clear, ADAT CT abdomen and pelvis no acute abnormalities Continue antiemetics Opioid withdrawal protocol implemented (2) Fever: Code(s): R50.9 - Fever, unspecified Status: Acute Assessment and Plan: Chest x-ray clear COVID-19 screen test negative Possibly secondary to UTI Chest x-ray clear COVID-19 screen test negative Possibly secondary to UTI HIV, hepatitis neg RPR pending gonorrhea, chlamydia pending (3) Abdominal pain: Code(s): R10.9 - Unspecified abdominal pain Status: Acute Assessment and Plan: Likely secondary to heroin withdrawal Supportive care (4) Substance abuse: Code(s): F19.10 - Other psychoactive substance abuse, uncomplicated Status: Acute Assessment and Plan: Follow-up in outpatient setting (5) Altered mental status: Code(s): R41.82 - Altered mental status, unspecified Status: Acute Assessment and Plan: Multifactorial, ?infection, drug use Patient had a fever of 100.5 in emergency room (6) Urinary tract infection: Code(s): N39.0 - Urinary tract infection, site not specified Status: Acute Assessment and Plan: Continue ciprofloxacin UC negative DS: Summary Hospital Course Hospital Course: Patient presented to emergency room due to nausea, vomiting, abdominal pain and diarrhea for the last 2 days or so after the patient had been consuming heroin for the past 2 weeks on a daily basis. He received IV fluids and antibiotics. His urine culture was clear. He had completed withdrawing from heroin and was treated with Librium for side effects. It had been over a week since he had stopped using heroin and his withdrawal symptoms had resolved at the time of discharge. Time Spent with Patient Time attestation: Total time spent providing and/or coordinating discharge services: 60 min Exam Narrative: Mr. Mendez is a thin, well-appearing 36-year-old male who is sitting up in a chair. He appears comfortable and is in NARD. Neuro: awake, alert and oriented x4, speech clear, no focal neuro deficits noted HEENMT: normocephalic, atraumatic, EOMI, sclerae anicteric Neck: supple, no lymphadenopathy Respiratory: clear to auscultation bilaterally, nonlabored breathing Cardio: regular rate, regular rhythm with S1-S2 Abdomen: nondistended, normoactive bowel sounds, soft, nontender to palpatio Back: Low back nontender to palpation Extremities: no edema, erythema, or tenderness to palpation, DP pulses 2+ bilaterally Skin: no rashes or lesions, warm and dry Psych: appropriate mood and affect, judgment and insight intact Const: General: comfortable, no acute distress, well developed and patient obtunded Nutritional Appearance: thin Orientation/consciousness: oriented to person, oriented to place, oriented to time, patient oriented x3 and patient obtunded HENMT: Head: normal to inspection, normocephalic and atraumatic Ears: hearing grossly normal bilaterally and external ears normal General nose exam: Normal external nose present Face and sinus: normal facial exam and face symmetric Mouth: Yes Normal oral and palatal mucosa present Teeth and gingiva: dentition normal Eyes: General: appearance normal, both eyes and all related structures Alignment and Position: alignment normal Sclera: sclerae normal Pupils: Equal, round and reactive pupils present EOM: EOMs intact bilaterally Neck: Neck: normal visual inspection, full
[2021-10-20 13:00] VITALS: BP 123/71; PULSE 62; O2SAT 100
[2021-10-20 13:03] VITALS: BP 133/79; PULSE 76; O2SAT 100
[2021-10-20 13:06] VITALS: BP 128/75; PULSE 98; O2SAT 100
[2021-10-20 14:00] VITALS: BP 128/64; PULSE 78; RESP 16; TEMP 36.8; O2SAT 100
--- NOTE | 2021-10-20 14:32 | PC.NURSE ---
This nurse reviewed the discharge instructions with the patient and all questions were answered at the time of discharge. Ronaldo Meyers Podiatric Technician walked patient to his semi in the parking lot to help the patient get his belongings. It was thoroughly discussed with the patient to ensure no drugs were being picked up when the patient was grabbing his belongings. Per Patient no drugs were in the patients possession in his vehicle. Patient called for an uber and the uber was to arrive within 3 minutes. Patient escorted out of the hospital.
== END 2021-10-20 14:30 | disposition home or self-care (01) | DRG 773 ==
LOC: ANHED 21:57 → ANH2MED 22:09
PROVIDERS: Nurse Practitioner; Nurse Practitioner Adult Health; Physician Assistant; Admitting Provider Internal Medicine; Emergency Provider Nurse Practitioner; Visit Provider Nurse Practitioner
DX: F11.13 Opioid abuse with withdrawal (principal); N39.0 Urinary tract infection, site not specified; R41.82 Altered mental status, unspecified; Z20.822 Contact with and (suspected) exposure to COVID-19; Z28.21 Immunization not carried out because of patient refusal; F17.210 Nicotine dependence, cigarettes, uncomplicated; Z88.6 Allergy status to analgesic agent
CPT/HCPCS: 36415; 71045; 74177; 80048; 80053; 80074; 80307; 81001; 83690; 83735; 84484; 85025; 85027; 86592; 86703; 87040; 87086; 87088; 87491; 87591; 87804; 93005; 96361; 96365; 96366; 96372; 96374; 96375; 96376; 99285; A9270; C9113; C9803; G0378; G0432; J0131; J0500; J0744; J1885; J2060; J2405; J2550; J7030; Q9967; U0003; U0005